=== PATIENT | female | born 1990 | race Caucasian/White ===

== ENCOUNTER 2019-12-21 12:48 | Emergency (ER) | payer BC ==
--- NOTE | 2019-12-21 13:53 | RAD REPORT ---
EXAM DESCRIPTION: CT - Head Brain Wo Cont - 12/21/2019 1:43 pm CLINICAL HISTORY: Dizziness COMPARISON: None. TECHNIQUE: Computed axial tomography of the head was obtained. IV contrast was not requested. All CT scans are performed using dose optimization technique as appropriate and may include automated exposure control or mA/KV adjustment according to patient size. FINDINGS: An intracranial bleed is not seen . The ventricles are normal in caliber. No extra-axial fluid collection is noted. Fluid within the sinuses/ mastoids is not seen. IMPRESSION: No acute intracranial abnormality is seen. If patient's symptoms persist MRI of the bra in would be recommended.
--- NOTE | 2019-12-21 14:44 | ER ---
Nurse's Notes 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 Transition of care: patient was not received from another setting of care. Onset of symptoms was November 28, 2019. Risk Assessment: Do you want to hurt yourself or someone else? Patient reports no desire to harm self or others. Care prior to arrival: None. 13:04 Method Of Arrival: Ambulatory hb 13:04 Acuity: SANJANA 3 hb 13:42 Initial Sepsis Screen: Does the patient meet any 2 criteria? No. Patient's initial jl7 sepsis screen is negative. Does the patient have a suspected source of infection? No. Patient's initial sepsis screen is negative. Historical: - Allergies: 13:06 Erythromycin; hb - PMHx: 13:06 Mckay's Palsy; hb - PSHx: 13:06 Foot - Left; Tonsillectomy; hb - Immunization history:: Adult Immunizations up to date. - Coronavirus screen:: The patient has NOT traveled to [place] in the past 14 days. The patient has NOT had contact with known/suspected case of Coronavirus? Proceed with normal triage procedures. - Social history:: Patient uses Patient/guardian denies using alcohol, street drugs, The patient lives with family, Smoking status: Patient reports the use of cigarette tobacco products, smokes one-half pack cigarettes per day. - Family history:: not pertinent. - Ebola Screening: : No symptoms or risks identified at this time. Screenin:00 Abuse screen: Denies threats or abuse. Denies injuries from another. Nutritional jl7 screening: No deficits noted. Tuberculosis screening: No symptoms or risk factors identified. Fall Risk None identified. Assessment: 13:45 General: Appears in no apparent distress. uncomfortable, Behavior is calm, cooperative, jl7 appropriate for age. Pain: Complains of pain in DILL Pain currently is 4 out of 10 on a pain scale. Neuro: Level of Consciousness is awake, alert, obeys commands, Oriented to person, place, time, situation, Moves all extremities. Full function Gait is steady, Speech is normal. Cardiovascular: Patient's skin is warm and dry. Respiratory: Airway is patent Respiratory effort is even, unlabored, Respiratory pattern is regular, symmetrical. Derm: Skin is pink, warm \T\ dry. Vital Signs: 13:06 BP 131 / 92; Pulse 82; Resp 16; Temp 97.8; Pulse Ox 98% on R/A; Weight 95.25 kg; Height hb 5 ft. 4 in. (162.56 cm); Pain 4/10; 14:30 BP 130 / 91; Pulse 85; Resp 17 S; Pulse Ox 100% on R/A; jl7 13:06 Body Mass Index 36.05 (95.25 kg, 162.56 cm) hb ED Course: 12:52 Patient arrived in ED. mr 13:05 Triage completed. hb 13:06 Arm band placed on. 13:11 Anthony Nunez MD is Attending Physician. ma2 13:28 Nehemiah Neves RN is Primary Nurse. jl7 14:00 Patient has correct armband on for positive identification. Placed in gown. Bed in low jl7 position. Call light in reach. Side rails up X 1. 14:42 Luis M Hobson MD is Referral Physician. ma2 14:49 No provider procedures requiring assistance completed. Patient did not have IV access jl7 during this emergency room visit. Administered Medications: No medications were administered Outcome: 14:42 Discharge ordered by . ma2 14:49 Discharged to home ambulatory. jl7 14:49 Condition: stable 14:49 Discharge instructions given to patient, family, Instructed on discharge instructions, follow up and referral plans. medication usage, Demonstrated understanding of instructions, follow-up care, medications, Prescriptions given X 1. 14:49 Patient left the ED. jl7 Signatures: Sandra Jj mr De LeonSusanna, RN BETZY Nehemiah Neves RN RN [facility] Anthony Nunez MD MD laMeg
--- NOTE | 2019-12-21 14:44 | EDPHYS ---
Physician Documentation [facility] Name: Bouchra Dawkins Age: 29 yrs Sex: Female : 1990 Arrival Date: 12/21/2019 Time: 12:52 Bed 20 Private MD: ED Physician Anthony Nunez HPI: 12/21 14:26 This 29 yrs old Female presents to ER via Ambulatory with complaints of Left ma2 side numbness. 14:26 The patient presents with feeling off balance. Onset: The symptoms/episode ma2 began/occurred suddenly, 1 week(s) ago. Associated signs and symptoms: Pertinent negatives: chest pain, diaphoresis, focal weakness, head injury. Severity of symptoms: At their worst the symptoms were mild in the emergency department the symptoms are unchanged. has positional vertigo, feels off balance only when she turn head to left, has no symptoms at this time and does not want rx for vertigo . Historical: - Allergies: 13:06 Erythromycin; hb - PMHx: 13:06 Mckay's Palsy; hb - PSHx: 13:06 Foot - Left; Tonsillectomy; hb - Immunization history:: Adult Immunizations up to date. - Coronavirus screen:: The patient has NOT traveled to [place] in the past 14 days. The patient has NOT had contact with known/suspected case of Coronavirus? Proceed with normal triage procedures. - Social history:: Patient uses Patient/guardian denies using alcohol, street drugs, The patient lives with family, Smoking status: Patient reports the use of cigarette tobacco products, smokes one-half pack cigarettes per day. - Family history:: not pertinent. - Ebola Screening: : No symptoms or risks identified at this time. ROS: 14:26 Constitutional: Negative for fever, chills, and weight loss. ma2 14:26 All other systems are negative. Exam: 14:26 Constitutional: This is a well developed, well nourished patient who is awake, alert, ma2 and in no acute distress. Head/Face: Normocephalic, atraumatic. Eyes: Pupils equal round and reactive to light, extra-ocular motions intact. Lids and lashes normal. Conjunctiva and sclera are non-icteric and not injected. Cornea within normal limits. Periorbital areas with no swelling, redness, or edema. ENT: Nares patent. No nasal discharge, no septal abnormalities noted. Tympanic membranes are normal and external auditory canals are clear. Oropharynx with no redness, swelling, or masses, exudates, or evidence of obstruction, uvula midline. Mucous membranes moist. Neck: Trachea midline, no thyromegaly or masses palpated, and no cervical lymphadenopathy. Supple, full range of motion without nuchal rigidity, or vertebral point tenderness. No Meningismus. Chest/axilla: Normal chest wall appearance and motion. Nontender with no deformity. No lesions are appreciated. Cardiovascular: Regular rate and rhythm with a normal S1 and S2. No gallops, murmurs, or rubs. Normal PMI, no JVD. No pulse deficits. Respiratory: Lungs have equal breath sounds bilaterally, clear to auscultation and percussion. No rales, rhonchi or wheezes noted. No increased work of breathing, no retractions or nasal flaring. Abdomen/GI: Soft, non-tender, with normal bowel sounds. No distension or tympany. No guarding or rebound. No evidence of tenderness throughout. MS/ Extremity: Pulses equal, no cyanosis. Neurovascular intact. Full, normal range of motion. Neuro: Awake and alert, GCS 15, oriented to person, place, time, and situation. Cranial nerves II-XII grossly intact. Motor strength 5/5 in all extremities. Sensory grossly intact. Cerebellar exam normal. Normal gait. Psych: Awake, alert, with orientation to person, place and time. Behavior, mood, and affect are within normal limits. Vital Signs: 13:06 BP 131 / 92; Pulse 82; Resp 16; Temp 97.8; Pulse Ox 98% on R/A; Weight 95.25 kg; Height hb 5 ft. 4 in. (162.56 cm); Pain 4/10; 14:30 BP 130 / 91; Pulse 85; Resp 17 S; Pulse Ox 100% on R/A; jl7 13:06 Body Mass Index 36.05 (95.25 kg, 162.56 cm) hb MDM: 13:11 Patient medically screened. ma2 14:26 Differential diagnosis: hypovolemia, idiopathic dizziness, near-syncope, vertigo. Data ma2 reviewed: vital signs, nurses notes. Counseling: I had a detailed discussion with the patient and/or guardian regarding: the historical points, exam findings, and any diagnostic results supporting the discharge/admit diagnosis, the presence of at least one elevated blood pressure reading (>120/80) during this emergency department visit, the need for outpatient follow up. 12/21 13:27 Order name: CT Head Brain wo Cont ma2 Administered Medications: No medications were administered Disposition: 12/21/19 14:42 Discharged to Home. Impression: Vertiginous syndromes in diseases classified elsewhere, left ear. - Condition is Stable. - Discharge Instructions: Vertigo, [id number]. - Prescriptions for Meclizine 25 mg Oral Tablet - take 1 tablet by ORAL route every 8 hours As needed; 30 tablet. - Medication Reconciliation Form, Thank You Letter, Antibiotic Education, Prescription Opioid Use form. - Follow up: Luis M Hobson; When: Tomorrow; Reason: If symptoms return, Continuance of care. Signatures: Dispatcher [employer] EDMS Susanna De Leon RN RN Nehemiah Neves RN RN jl7 Anthony Nunez MD MD ma2 Corrections: (The following items were deleted from the chart) 14:44 14:42 12/21/2019 14:42 Discharged to Home. Impression: Vertigo of central origin, left ma2 ear. Condition is Stable. Prescriptions for Meclizine 25 mg Oral Tablet - take 1 tablet by ORAL route every 8 hours As needed; 30 tablet. and Forms are Medication Reconciliation Form, Thank You Letter, Antibiotic Education, Prescription Opioid Use. Follow up: Luis M Hobson; When: Tomorrow; Reason: If symptoms return, Continuance of care. oh2 14:49 14:44 12/21/2019 14:42 Discharged to Home. Impression: Vertiginous syndromes in jl7 diseases classified elsewhere, left ear. Condition is Stable. Prescriptions for Meclizine 25 mg Oral Tablet - take 1 tablet by ORAL route every 8 hours As needed; 30 tablet. and Forms are Medication Reconciliation Form, Thank You Letter, Antibiotic Education, Prescription Opioid Use. Follow up: Luis M Hobson; When: Tomorrow; Reason: If symptoms return, Continuance of care. ma2
[2019-12-21 14:57] VITALS: TEMP 97.8
[2019-12-21 14:58] VITALS: BP 130/91; O2SAT 100
== END 2019-12-21 14:49 | disposition home or self-care (01) ==
LOC: ER 12:48
DX: H82.2 Vertiginous syndromes in diseases classified elsewhere, left ear (principal); F17.210 Nicotine dependence, cigarettes, uncomplicated; G51.0 Bell's palsy; Z88.3 Allergy status to other anti-infective agents
CPT/HCPCS: 70450; 99282

== ENCOUNTER 2024-12-29 03:46 | Emergency (ER) | payer BC ==
--- NOTE | 2024-12-29 04:38 | EDPHYS ---
Physician Documentation [facility] Name: Bouchra Dawkins Age: 34 yrs Sex: Female : 1990 Arrival Date: 12/29/2024 Time: 03:46 Bed 8 Private MD: ED Physician Araseli Nix HPI: 12/29 04:34 This 34 yrs old Female presents to ER via Ambulatory with complaints of Chest sp3 Tightness, Anxiety, Neck and Upper Back Pain, Headache. 04:34 34-year-old female with history of Mckay's palsy and anxiety and recent neck strain sp3 presents to the ED with chief complaint palpitations and anxiety with worsening neck tightness. Symptoms are already self resolving. She denies any headache, shortness of breath, low back pain, abdominal pain, vomiting, diarrhea or substernal chest pain. Remainder of ROS negative.. PODIATRIST: 04:18 LMP 12/12/2024, unknown vc1 Historical: - Allergies: 04:14 Erythromycin; vc1 - Home Meds: 04:14 omeprazole 20 mg oral capsule,delayed release (e.c.) [Active]; Klonopin 0.25 mg Oral vc1 [Active]; Rose Oral [Active]; - PMHx: 04:14 Mckay's Palsy; Anxiety; vc1 - PSHx: 04:14 Tonsillectomy; vc1 - Immunization history:: Client reports having NOT received the Covid vaccine. Pneumococcal vaccine is not up to date. - Infectious Disease History:: Denies. - Social history:: Smoking status: Patient reports the use of cigarette tobacco products, 5-7 cigs. ROS: 04:35 Constitutional: Negative for fever, chills, and weight loss, Eyes: Negative for injury, sp3 pain, redness, and discharge, Neck: Negative for injury, pain, and swelling, Cardiovascular: Negative for chest pain, palpitations, and edema, Respiratory: Negative for shortness of breath, cough, wheezing, and pleuritic chest pain, Abdomen/GI: Negative for abdominal pain, nausea, vomiting, diarrhea, and constipation, Back: Negative for injury and pain, MS/Extremity: Negative for injury and deformity, Skin: Negative for injury, rash, and discoloration, Neuro: Negative for headache, weakness, numbness, tingling, and seizure, Allergy/Immunology: Negative for hives, rash, and allergies, Endocrine: Negative for neck swelling, polydipsia, polyuria, polyphagia, and marked weight changes, Hematologic/Lymphatic: Negative for swollen nodes, abnormal bleeding, and unusual bruising, 04:35 All other systems are negative, Exam: 04:36 Constitutional: This is a well developed, well nourished patient who is awake, alert, sp3 and in no acute distress. Head/Face: Normocephalic, atraumatic. Eyes: Pupils equal round and reactive to light, extra-ocular motions intact. Lids and lashes normal. Conjunctiva and sclera are non-icteric and not injected. Cornea within normal limits. Periorbital areas with no swelling, redness, or edema. Neck: Trachea midline, no thyromegaly or masses palpated, and no cervical lymphadenopathy. Supple, full range of motion without nuchal rigidity, or vertebral point tenderness. No Meningismus. Chest/axilla: Normal chest wall appearance and motion. Nontender with no deformity. No lesions are appreciated. Cardiovascular: Regular rate and rhythm with a normal S1 and S2. No gallops, murmurs, or rubs. Normal PMI, no JVD. No pulse deficits. Respiratory: Lungs have equal breath sounds bilaterally, clear to auscultation and percussion. No rales, rhonchi or wheezes noted. No increased work of breathing, no retractions or nasal flaring. Abdomen/GI: Soft, non-tender, with normal bowel sounds. No distension or tympany. No guarding or rebound. No evidence of tenderness throughout. Back: No spinal tenderness. No costovertebral tenderness. Full range of motion. Skin: Warm, dry with normal turgor. Normal color with no rashes, no lesions, and no evidence of cellulitis. MS/ Extremity: Pulses equal, no cyanosis. Neurovascular intact. Full, normal range of motion. Neuro: Awake and alert, GCS 15, oriented to person, place, time, and situation. Cranial nerves II-XII grossly intact. Motor strength 5/5 in all extremities. Sensory grossly intact. Cerebellar exam normal. Normal gait. Psych: Awake, alert, with orientation to person, place and time. Behavior, mood, and affect are within normal limits. 04:36 ECG was reviewed by the Attending Physician. EKG demonstrates normal sinus rhythm at 74 bpm with normal intervals, normal QRS, normal axis, nonspecific diffuse ST/T changes without evidence of acute ischemia. Vital Signs: 04:09 BP 135 / 88; Pulse 88; Resp 14; Temp 98.3; Pulse Ox 100% ; Weight 79.38 kg; Height 5 vc1 ft. 4 in. ; Pain 2/10; 04:44 BP 124 / 93; Pulse 73; Resp 18; Temp 98.3; Pulse Ox 95% ; Pain 0/10; bm8 04:09 Body Mass Index 30.04 (79.38 kg, 162.56 cm) vc1 04:09 Pain Scale: Adult vc1 04:44 Pain Scale: Adult bm8 [place] Coma Score: 04:44 Eye Response: spontaneous(4). Motor Response: obeys commands(6). Verbal Response: bm8 oriented(5). Total: 15. MDM: 03:56 Medical Screening Exam initiated sp3 04:36 Data reviewed: EKG, radiologic studies. ED course: 34-year-old female with anxiety now sp3 with resolved symptoms. Heart rate is normal in the low 70s. EKG and chest x-ray also normal. We will safely discharge home at this time with follow-up to PCP on any medication changes.. 12/29 04:00 Order name: XRAY Chest (1 view) sp3 12/29 04:00 Order name: EKG; Complete Time: 04:00 sp3 12/29 04:00 Order name: EKG - Nurse/Tech; Complete Time: 04:12 sp3 Administered Medications: No medications were administered Disposition Summary: 12/29/24 04:37 Discharge Ordered Notes: Location: Home sp3 Condition: Stable sp3 Diagnosis - Anxiety disorder, unspecified sp3 Followup: sp3 - With: Private Physician - When: Upon discharge from the Emergency Department - Reason: Recheck today's complaints, Continuance of care Discharge Instructions: - Discharge Summary Sheet sp3 - Managing Anxiety, Adult sp3 Forms: - Medication Reconciliation Form sp3 - Antibiotic Education sp3 - Prescription Opioid Use sp3 - Patient Portal Instructions sp3 - Leadership Thank You Letter sp3 Signatures: Dispatcher [employer] EDMS Araseli Nix MD MD sp3 Marla Nance RN RN vc1
--- NOTE | 2024-12-29 04:38 | ER ---
Nurse's Notes [facility] Name: Bouchra Dawkins Age: 34 yrs Sex: Female : 1990 Arrival Date: 12/29/2024 Time: 03:46 Bed 8 Private MD: Diagnosis: Anxiety disorder, unspecified Presentation: 12/29 04:09 Chief complaint: Patient states: went to urgent care Saturday for neck sprain, it is vc1 still bothering me. Tonight I was trying to lay down and I started having chest palpitations and chest tightness. Coronavirus screen: Client denies travel out of the [place] in the last 14 days. At this time, the client does not indicate any symptoms associated with coronavirus-19. Ebola Screen: Patient negative for fever greater than or equal to 101.5 degrees Fahrenheit, and additional compatible Ebola Virus Disease symptoms Patient denies exposure to infectious person. Patient denies travel to an Ebola-affected area in the 21 days before illness onset. No symptoms or risks identified at this time. Initial Sepsis Screen: Does the patient meet any 2 criteria? No. Patient's initial sepsis screen is negative. Does the patient have a suspected source of infection? No. Patient's initial sepsis screen is negative. Risk Assessment: Do you want to hurt yourself or someone else? Patient reports no desire to harm self or others. Onset of symptoms was December 29, 2024. Care prior to arrival: None. Activity prior to arrival: None. 04:09 Method Of Arrival: Ambulatory vc1 04:09 Acuity: SANJANA 4 vc1 Triage Assessment: 04:19 General: Appears in no apparent distress. uncomfortable, well groomed, well developed, vc1 well nourished, Behavior is cooperative, anxious. Pain: Complains of pain in right sternocleidomastoid and right lateral aspect of neck Pain does not radiate. Pain currently is 2 out of 10 on a pain scale. EENT: No deficits noted. No signs and/or symptoms were reported regarding the EENT system. Neuro: Level of Consciousness is awake, alert, obeys commands, Oriented to person, place, time, situation, Appropriate for age. Cardiovascular: Reports palpitations, chest tightness Capillary refill < 3 seconds Patient's skin is warm and dry. Cardiovascular: Heart tones S1 S2 present. Respiratory: Airway is patent Respiratory effort is even, unlabored, Respiratory pattern is regular, symmetrical, Breath sounds are clear bilaterally. GI: No deficits noted. No signs and/or symptoms were reported involving the gastrointestinal system. : No deficits noted. No signs and/or symptoms were reported regarding the genitourinary system. Derm: Skin is intact, is healthy with good turgor, Skin is dry, Skin is normal, Skin temperature is warm. Musculoskeletal: Circulation, motion, and sensation intact. Range of motion: intact in all extremities, Reports pain in right sternocleidomastoid. [employer] LINESMAN: 04:18 LMP 12/12/2024, unknown vc1 Historical: - Allergies: 04:14 Erythromycin; vc1 - Home Meds: 04:14 omeprazole 20 mg oral capsule,delayed release (e.c.) [Active]; Klonopin 0.25 mg Oral vc1 [Active]; Rose Oral [Active]; - PMHx: 04:14 Mckay's Palsy; Anxiety; vc1 - PSHx: 04:14 Tonsillectomy; vc1 - Immunization history:: Client reports having NOT received the Covid vaccine. Pneumococcal vaccine is not up to date. - Infectious Disease History:: Denies. - Social history:: Smoking status: Patient reports the use of cigarette tobacco products, 5-7 cigs. Screenin:[address] [facility] ED Fall Risk Assessment (Adult) History of falling in the last 3 months, vc1 including since admission No falls in past 3 months (0 pts) Confusion or Disorientation No (0 pts) Intoxicated or Sedated No (0 pts) Impaired Gait No (0 pts) Mobility Assist Device Used No (0 pt) Altered Elimination No (0 pt) Score/Fall Risk Level 0 - 2 = Low Risk Oriented to surroundings, Maintained a safe environment, Educated pt \T\ family on fall prevention, incl call for assistance when getting out of bed. Abuse screen: Denies threats or abuse. Nutritional screening: No deficits noted. Tuberculosis screening: No symptoms or risk factors identified. Assessment: 04:44 Reassessment: Patient appears in no apparent distress at this time. Patient and/or bm8 family updated on plan of care and expected duration. Pain level reassessed. Patient is alert, oriented x 3, equal unlabored respirations, skin warm/dry/pink. General: Appears in no apparent distress. comfortable, Behavior is calm, cooperative, appropriate for age. Pain: Denies pain. Pain currently is 0 out of 10 on a pain scale. Neuro: No deficits noted. Level of Consciousness is awake, alert, obeys commands, Oriented to person, place, time, situation, Appropriate for age. Cardiovascular: Denies chest pain, Heart tones S1 S2 present. Respiratory: Airway is patent Respiratory effort is even, unlabored, Respiratory pattern is regular, symmetrical. Vital Signs: 04:09 BP 135 / 88; Pulse 88; Resp 14; Temp 98.3; Pulse Ox 100% ; Weight 79.38 kg; Height 5 vc1 ft. 4 in. ; Pain 2/10; 04:44 BP 124 / 93; Pulse 73; Resp 18; Temp 98.3; Pulse Ox 95% ; Pain 0/10; bm8 04:09 Body Mass Index 30.04 (79.38 kg, 162.56 cm) vc1 04:09 Pain Scale: Adult vc1 04:44 Pain Scale: Adult bm8 [place] Coma Score: 04:44 Eye Response: spontaneous(4). Motor Response: obeys commands(6). Verbal Response: bm8 oriented(5). Total: 15. ED Course: 03:50 Patient arrived in ED. jj6 03:55 Damon Tinsley, RN is Primary Nurse. bm8 03:56 Araseli Nix MD is Attending Physician. sp3 04:12 No provider procedures requiring assistance completed. EKG done, by ED staff, reviewed bm8 by Araseli Nix MD. Patient maintains SpO2 saturation greater than 95% on room air. 04:14 Triage completed. vc1 04:18 Arm band placed on right wrist. vc1 04:19 Patient has correct armband on for positive identification. Bed in low position. vc1 ip litigation associate on. Pulse ox on. NIBP on. 04:26 XRAY Chest (1 view) In Process Unspecified. EDMS 04:44 Patient did not have IV access during this emergency room visit. bm8 04:44 Provided Education on: post er care. bm8 Administered Medications: No medications were administered Medication: 04:19 VIS not applicable for this client. vc1 Outcome: 04:37 Discharge ordered by . sp3 04:44 Discharged to home ambulatory, bm8 04:44 Condition: stable 04:44 Discharge instructions given to patient, Instructed on discharge instructions, follow up and referral plans. Demonstrated understanding of instructions, follow-up care, 04:46 Patient left the ED. bm8 Signatures: Dispatcher [employer] Araseli Kathleen MD MD sp3 Bethany Silva Vanessa RN RN vc1 Damon Tinsley RN RN bm8
[2024-12-29 04:54] VITALS: TEMP 98.3
[2024-12-29 04:55] VITALS: BP 124/93; O2SAT 95
--- NOTE | 2024-12-29 06:09 | RAD REPORT ---
PROCEDURE: R CHEST 1 VIEW HISTORY: HEST PAIN COMPARISON: None FINDINGS: The heart appears unremarkable. The lungs are clear there is no alveolar consolidation, effusion or p neumothorax. There are no acute bony or soft tissue abnormalities. Dystrophic calcification projects over the right AC joint. IMPRESSION: No acute cardiopulmonary process. Electronically signed by: Umer Tsang MD 12/29/2024 05:50 AM [facility] Due to temporary technical issues with the [employer] reporting system, reports are being martha d by the in-house radiologist without review as a courtesy to ensure prompt reporting the interpreting radiologist is fully responsible for the content of the report. Transcribed Date/Time: 12/29/2024 6:09 AM
--- NOTE | 2024-12-29 12:10 | EKG ---
Test Date: 2024-12-29 Test Time: 04:04:01 Gristmill Operator: MIKE MEASUREMENT RESULTS: Intervals: Rate: 74 SD: 138 QRSD: 76 QT: 370 QTc: 410 Alloway: P: 58 SD: 138 QRS: 36 T: 44 INTERPRETIVE STATEMENTS: Normal sinus rhythm with sinus arrhythmia Normal ECG No previous ECG available for comparison Electronically Signed On 12-29-24 12:10:15 REEL WINDER by Arturo Marley
== END 2024-12-29 04:46 | disposition home or self-care (01) ==
LOC: ER 03:46
DX: F41.9 Anxiety disorder, unspecified (principal); R51.9 Headache, unspecified; Z72.0 Tobacco use
CPT/HCPCS: 71045; 93005

== ENCOUNTER 2025-03-07 17:23 | Emergency (ER) | payer BC ==
[2025-03-07 18:55] LABS: Absolute Eosinophils 0.2 K/uL (0-0.5); Absolute Lymphocytes (CBC) 3.2 K/uL (0.7-4.9); Absolute Monocytes 0.4 K/uL (0.1-1.3); Absolute Neutrophil 3.3 K/uL (1.8-8.0); Basophils % 0.6 % (0-1.3); Eosinophils % 2.2 % (0-4.4); Hematocrit 39.7 % (36.0-45.0); Hemoglobin 13.5 g/dL (12.0-15.0); Lymphocytes % 44.6 % (15.3-44.8); MCH 30.3 pg (27.0-35.0); MCHC 34.2 g/dL (32.0-36.0); MCV 88.8 fL (80-100); MPV 8.3 fL (7.6-11.3); Monocytes % 5.6 % (3.3-12.3); Nucleated Red Blood Cells % 0.1 % (0-0); Platelets 241 thou/uL (152-406); RBC Red Blood Cell Count 4.47 M/uL (3.86-4.86); Red Cell Distribution Width 13.6 % (12.1-15.2)
[2025-03-07 18:56] LABS: Specific Gravity 1.007 (1.005-1.030)
[2025-03-07 18:57] LABS: Specific Gravity 1.007 (1.005-1.030); Sqamous Epithelial <5 /HPF (None Seen); Urine Bacteria None Seen /HPF (<20); Urine Bilirubin NEGATIVE (Negative); Urine Blood 1+ (Negative); Urine Clarity Clear (Clear); Urine Color Colorless (Yellow); Urine Culture Reflex Order NOT NEEDED; Urine Glucose NEGATIVE (Negative); Urine Ketones NEGATIVE (Negative); Urine Microscopic Reflex YN ORDER UMIC; Urine Mucus Slight /HPF (None Seen); Urine Nitrite NEGATIVE (Negative); Urine Protein NEGATIVE (Negative); Urine RBC <5 /HPF (None Seen); Urine Urobilinogen Normal (Normal); Urine WBC <5 /HPF (<5); Urine pH 5.5 (5.0-7.0)
[2025-03-07 19:11] LABS: ALT/SGPT 15 U/L (13-56); Albumin 3.4 g/dL (3.4-5.0); Albumin/Globulin Ratio 0.9 (1.1-1.8); Alkaline Phosphatase 61 U/L (45-117); Anion Gap 7.6 mEq/L (5.0-15.0); BUN Blood Urea Nitrogen 9 mg/dL (7-18); Bicarbonate 27 mEq/L (21-32); Bilirubin Total 0.4 mg/dL (0.2-1.0); Globulin 3.7 g/dL (2.3-3.5); Glomerular Filtration Rate 100 ml/min (=/>90); Glucose Level 90 mg/dL (74-106); Lipase 36 U/L (13-75); Potassium 3.6 mEq/L (3.5-5.1); Protein, Total 7.1 g/dL (6.4-8.2); Sodium Level 137 mEq/L (136-145)
[2025-03-07 19:12] LABS: AST/SGOT < 10 U/L (15-37)
[2025-03-07] MEDS ORDERED: NA CHLORIDE 0.9% 1,000 ML ONE (19:15)
[2025-03-07] MEDS ORDERED: FAMOTIDINE 20 MG/2 ML VIAL IV ONE (19:15)
[2025-03-07] MEDS ORDERED: ONDANSETRON 4 MG/2 ML VIAL ONE (19:15)
--- NOTE | 2025-03-07 19:50 | RAD REPORT ---
EXAMINATION: CT ABDOMEN AND PELVIS WITH CONTRAST CLINICAL INDICATION: left upper abdomen pain TECHNIQUE: CT abdomen and pelvis was performed, after the administration of IV contrast, as per [facility] protocol. Axial, sagittal and coronal reconstructions were obtained. One or more of the following dose reduction techniques were used: Automated exposure control, adjustment of the mA and k V according to patient size, and iterative reconstruction. Unless otherwise specified, incidental findings do not require dedicated imaging follow-up. COMPARISON: No prior exam. FINDINGS: LOWER CHEST: The visualized lung bases are clear. LIVER: Normal in size and contour. No focal lesion. Grossly unremarkable gallbladder. SPLEEN: Normal size. No focal lesion. PANCREAS: No mass, ductal dilation, or jumana-pancreatic fluid. ADRENALS: Normal; no mass. KIDNEYS: Normal size and contour. No hydronephrosis. Benign left renal cyst. GASTROINTESTINAL TRACT: No evidence of free air, significant intra-abdominal free fluid, bowel obstru ction or abscess. Moderate stool is retained throughout the colon. APPENDIX: Normal appendix. LYMPH NODES: No lymphadenopathy. MUSCULOSKELETAL: No acute or suspicious osseous abnormality. IMPRESSION: No acute or concerning abnormalities seen in the abdomen or pelvis.
[2025-03-07] MEDS ORDERED: MAGNES/ALUMIN/SIMET 30ML UCUP ONE (20:56)
[2025-03-07] MEDS ORDERED: LIDOCAINE VISCOUS 2% 10ML ORAL SOLN ONE (20:57)
--- NOTE | 2025-03-07 21:26 | EDPHYS ---
Physician Documentation [facility] Name: Bouchra Dawkins Age: 35 yrs Sex: Female : 1990 Arrival Date: 03/07/2025 Time: 17:23 Bed 17 Private MD: ED Physician Felton Caro HPI: 03/07 18:35 This 35 yrs old Female presents to ER via Ambulatory with complaints of Abdominal Pain. cp 18:35 The patient presents with abdominal pain in the left upper quadrant. cp 18:35 Onset: The symptoms/episode began/occurred this past Saturday. The symptoms radiate to cp 18:35 Associated signs and symptoms: Pertinent positives: nausea, Pertinent negatives: active cp vomiting. The symptoms are described as achy, burning, waxing/waning. Severity of pain: in the emergency department the pain is unchanged despite home interventions. Patient reports constipation when pain started, took laxative w/o improvement of pain. Historical: - Allergies: 17:36 Erythromycin; aa5 - Home Meds: 17:38 omeprazole 20 mg Oral capsule [Active]; Klonopin 0.25 mg Oral [Active]; Rose Oral aa5 [Active]; - PMHx: 17:36 Anxiety; Mckay's Palsy; GERD (Unknown); aa5 - PSHx: 17:36 Tonsillectomy; aa5 - Immunization history:: Adult Immunizations unknown. - Infectious Disease History:: Denies. - Social history:: Smoking status: Patient reports the use of cigarette tobacco products. ROS: 18:40 Constitutional: Negative for body aches, chills, fever, poor PO intake, cp 18:40 Eyes: Negative for injury, pain, redness, and discharge, cp 18:40 ENT: Negative for drainage from ear(s), ear pain, difficulty swallowing, difficulty handling secretions, 18:40 Cardiovascular: Negative for chest pain, edema, palpitations, 18:40 Respiratory: Negative for cough, shortness of breath, wheezing, 18:40 Abdomen/GI: Positive for abdominal pain, nausea, Negative for vomiting, diarrhea, constipation, anorexia, 18:40 Back: Positive for radiated pain, 18:40 Neuro: Negative for altered mental status, dizziness, headache, weakness, 18:40 All other systems are negative, Exam: 18:45 Constitutional: The patient appears in no acute distress, alert, awake, cp non-diaphoretic, non-toxic, well developed, well nourished, 18:45 Head/Face: Normocephalic, atraumatic. cp 18:45 Eyes: Periorbital structures: appear normal, Conjunctiva: normal, no exudate, no injection, Sclera: no appreciated abnormality, Lids and lashes: appear normal, bilaterally, 18:45 ENT: External ear(s): are unremarkable, Nose: is normal, Mouth: Lips: moist, Oral mucosa: moist, Posterior pharynx: Airway: no evidence of obstruction, patent, 18:45 Chest/axilla: Inspection: normal, Palpation: crepitus, is not appreciated, tenderness, is not appreciated, 18:45 Cardiovascular: Rate: bradycardic, Rhythm: regular, Edema: is not appreciated, JVD: is not appreciated, 18:45 Respiratory: the patient does not display signs of respiratory distress, Respirations: normal, no use of accessory muscles, no retractions, labored breathing, is not present, Breath sounds: are clear throughout, no decreased breath sounds, no stridor, no wheezing, 18:45 Abdomen/GI: Inspection: abdomen appears normal, Bowel sounds: active, all quadrants, Palpation: soft, in all quadrants, moderate abdominal tenderness, in the left upper quadrant, rebound tenderness, is not appreciated, involuntary guarding, is not appreciated, 18:45 Back: CVA tenderness, is absent, 18:45 Skin: no rash present. Vital Signs: 17:37 BP 115 / 74; Pulse 54; Resp 16 S; Temp 98.4(O); Pulse Ox 100% on R/A; Weight 77.11 kg aa5 (R); Height 5 ft. 4 in. (R); 21:25 BP 111 / 81; Pulse 56; Resp 16; Pulse Ox 97% on R/A; jb4 17:37 Body Mass Index 29.18 (77.11 kg, 162.56 cm) aa5 Hudson Coma Score: 18:55 Eye Response: spontaneous(4). Motor Response: obeys commands(6). Verbal Response: dd2 oriented(5). Total: 15. MDM: 19:00 Differential diagnosis: cholecystitis, Cholelithiasis, non-specific abd pain, cp pancreatitis, Peptic Ulcer Disease, Perf. Duodenal Ulcer, Perf. Gastric Ulcer, Pyelonephritis, Ureterolithiasis, urinary tract infection. 21:25 Medical Screening Exam initiated 21:25 Data reviewed: vital signs, nurses notes, lab test result(s), radiologic studies, CT cp scan, and as a result, I will discharge patient. 21:25 I considered the following discharge prescriptions or medication management in the emergency department Medications were administered in the Emergency Department. See MAR. Counseling: I had a detailed discussion with the patient and/or guardian regarding the historical points, exam findings, and any diagnostic results supporting the discharge/admit diagnosis, lab results, radiology results, to return to the emergency department if symptoms worsen or persist or if there are any questions or concerns that arise at home. Response to treatment: the patient's symptoms have mildly improved after treatment, and as a result, I will discharge patient. Special discussion: Based on the patient's Hx, exam, and Dx evaluation, there is no indication for emergent surgery or inpatient Tx. It is understood by the patient/guardian that if the Sx's persist or worsen they need to return immediately for re-evaluation. 03/07 18:34 Order name: CBC with Diff; Complete Time: 19:16 03/07 18:34 Order name: CMP; Complete Time: 19:16 03/07 20:10 Interpretation: Reviewed. 03/07 18:34 Order name: Lipase; Complete Time: 19:16 03/07 18:34 Order name: Test, Urine; Complete Time: 19:16 03/07 18:34 Order name: UA Rfx Peewee Cult if indicated; Complete Time: 19:16 03/07 19:17 Order name: CT Abd/Pelvis - IV Contrast Only; Complete Time: 20:09 03/07 18:34 Order name: IV Saline Lock; Complete Time: 18:55 03/07 18:34 Order name: Labs collected and sent; Complete Time: 18:55 Administered Medications: 19:27 Drug: Famotidine IVP 20 mg IVP once; dilute with 10 mL 0.9% NaCl; give over 2 minutes jb4 Route: IVP; Site: right antecubital; 21:49 Follow up: Response: No adverse reaction; Marked relief of symptoms jb4 19:27 Not Given (Patient Refused): ondansetron 4 mg IVP once; over 2 minutes jb4 19:27 Drug: NS 0.9% IV 1000 ml IV at 1 bolus Per protocol; to be given as a bolus over 60 jb4 minutes Route: IV; Rate: 1 bolus; Site: right antecubital; 20:30 Follow up: Response: No adverse reaction; Marked relief of symptoms; IV Status: jb4 Completed infusion; IV Intake: 1000ml 20:58 Drug: GI Cocktail without - (Maalox PO 30 ml, Lidocaine Mucous Membrane 2 % 15 jb4 ml) PO once Route: PO; 21:48 Follow up: Response: No adverse reaction; Marked relief of symptoms jb4 Disposition Summary: 03/07/25 21:25 Discharge Ordered Notes: Location: Home cp Problem: new cp Symptoms: have improved cp Condition: Stable cp Diagnosis - Upper abdominal pain, unspecified cp Followup: cp - With: Private Physician - When: 2 - 3 days - Reason: Worsening of condition Discharge Instructions: - Discharge Summary Sheet cp - Abdominal Pain, Adult cp - Food Choices for Gastroesophageal Reflux Disease, Adult cp - Gastroesophageal Reflux Disease, Adult cp Forms: - Medication Reconciliation Form cp - Antibiotic Education cp - Prescription Opioid Use cp - Patient Portal Instructions cp - Leadership Thank You Letter cp Prescriptions: - Carafate 1 gram Oral tablet - take 1 tablet ORAL route 4 times per day take on an empty stomach, beginning on cp waking and last dose at bedtime. dissolve tablet in 6 oz warm water prior to ingestion; 100 tablet; Refills: 0, Product Selection Permitted Addendum: 03/09/2025 09:08 Co-signature as Attending Physician, Felton Caro MD I reviewed the patient's care r n provided by the Advanced Practice Provider and agree with the diagnosis and treatment plan. Signatures: Dispatcher [employer] EDFelton Simmons MD MD rn Calderon, Audri RN RN aa5 Elkin Vila PA PA cp Bryson, James RN RN jb4
--- NOTE | 2025-03-07 21:26 | ER ---
Nurse's Notes [facility] Name: Bouchra Dawkins Age: 35 yrs Sex: Female : 1990 Arrival Date: 03/07/2025 Time: 17:23 Bed 17 Private MD: Diagnosis: Upper abdominal pain, unspecified Presentation: 03/07 17:37 Chief complaint: Patient states: LUQ pain that began Saturday, denies nausea/vomiting. aa5 Coronavirus screen: At this time, the client does not indicate any symptoms associated with coronavirus-19. Ebola Screen: Patient denies travel to an Ebola-affected area in the 21 days before illness onset. Initial Sepsis Screen: Does the patient meet any 2 criteria? No. Patient's initial sepsis screen is negative. Does the patient have a suspected source of infection? No. Patient's initial sepsis screen is negative. Risk Assessment: Do you want to hurt yourself or someone else? Patient reports no desire to harm self or others. Onset of symptoms was February 2025. 17:37 Acuity: SANJANA 3 aa5 17:37 Method Of Arrival: Ambulatory aa5 Historical: - Allergies: 17:36 Erythromycin; aa5 - Home Meds: 17:38 omeprazole 20 mg Oral capsule [Active]; Klonopin 0.25 mg Oral [Active]; Rose Oral aa5 [Active]; - PMHx: 17:36 Anxiety; Mckay's Palsy; GERD (Unknown); aa5 - PSHx: 17:36 Tonsillectomy; aa5 - Immunization history:: Adult Immunizations unknown. - Infectious Disease History:: Denies. - Social history:: Smoking status: Patient reports the use of cigarette tobacco products. Screenin:55 [facility] ED Fall Risk Assessment (Adult) History of falling in the last 3 months, dd2 including since admission No falls in past 3 months (0 pts) Confusion or Disorientation No (0 pts) Intoxicated or Sedated No (0 pts) Impaired Gait No (0 pts) Mobility Assist Device Used No (0 pt) Altered Elimination No (0 pt) Score/Fall Risk Level 0 - 2 = Low Risk Oriented to surroundings, Maintained a safe environment, Educated pt \T\ family on fall prevention, incl call for assistance when getting out of bed, Assessed \T\ reinforced patient's understanding of fall precautions, Hourly rounding (assess needs \T\ fall precautionary measures) done. Abuse screen: Denies threats or abuse. Denies injuries from another. Nutritional screening: No deficits noted. Tuberculosis screening: No symptoms or risk factors identified. Assessment: 18:55 General: Appears in no apparent distress. uncomfortable, Behavior is calm, cooperative, dd2 appropriate for age. Pain: Complains of pain in left upper quadrant Pain does not radiate. Pain currently is 6 out of 10 on a pain scale. Quality of pain is described as burning, crampy. Neuro: No deficits noted. Cardiovascular: No deficits noted. Patient's skin is warm and dry. Respiratory: No deficits noted. Airway is patent Respiratory effort is even, unlabored, Respiratory pattern is regular, symmetrical. GI: Bowel sounds present X 4 quads. Abd is soft X 4 quads Abdomen is tender to palpation in left upper quadrant Reports upper abdominal pain, cramping. GI: Patient currently denies nausea, vomiting. : No deficits noted. No signs and/or symptoms were reported regarding the genitourinary system. EENT: No deficits noted. No signs and/or symptoms were reported regarding the EENT system. Derm: No deficits noted. No signs and/or symptoms reported regarding the dermatologic system. Musculoskeletal: No deficits noted. Circulation, motion, and sensation intact. Range of motion: intact in all extremities. 21:22 Reassessment: Patient appears in no apparent distress at this time. Patient and/or jb4 family updated on plan of care and expected duration. Pain level reassessed. Patient is alert, oriented x 3, equal unlabored respirations, skin warm/dry/pink. 21:48 Reassessment: Patient appears in no apparent distress at this time. Patient and/or jb4 family updated on plan of care and expected duration. Pain level reassessed. Patient is alert, oriented x 3, equal unlabored respirations, skin warm/dry/pink. Vital Signs: 17:37 BP 115 / 74; Pulse 54; Resp 16 S; Temp 98.4(O); Pulse Ox 100% on R/A; Weight 77.11 kg aa5 (R); Height 5 ft. 4 in. (R); 21:25 BP 111 / 81; Pulse 56; Resp 16; Pulse Ox 97% on R/A; jb4 17:37 Body Mass Index 29.18 (77.11 kg, 162.56 cm) aa5 Sanya Coma Score: 18:55 Eye Response: spontaneous(4). Motor Response: obeys commands(6). Verbal Response: dd2 oriented(5). Total: 15. ED Course: 17:25 Patient arrived in ED. mr 17:35 Arm band placed on. aa5 17:36 Elkin Vila PA is PHCP. cp 17:36 Felton Caro MD is Attending Physician. cp 17:38 Triage completed. aa5 18:24 VILLA ALVAREZ, BETZY is Primary Nurse. dd2 18:55 Patient has correct armband on for positive identification. Placed in gown. Bed in low dd2 position. Call light in reach. Side rails up X 1. Client placed on continuous cardiac and pulse oximetry monitoring. NIBP monitoring applied. Door closed. Noise minimized. Warm blanket given. Pillow given. Verbal reassurance given. 18:55 CBC with Diff Sent. dd2 18:55 CMP Sent. dd2 18:55 Lipase Sent. dd2 18:55 Test, Urine Sent. dd2 18:55 UA Rfx Peewee Cult if indicated Sent. dd2 18:55 No provider procedures requiring assistance completed. Initial lab(s) drawn, by mn, dd2 sent to lab. Urine collected: clean catch specimen, cloudy. Inserted saline lock: 20 gauge in right antecubital area, using aseptic technique. Blood collected. Flushed with 10 mL NS. Patient maintains SpO2 saturation greater than 95% on room air. 19:46 CT Abd/Pelvis - IV Contrast Only In Process Unspecified. EDMS 21:22 Provided Education on: plan of care. jb4 21:48 IV discontinued, intact, bleeding controlled, No redness/swelling at site. Pressure jb4 dressing applied. Administered Medications: 19:27 Drug: Famotidine IVP 20 mg IVP once; dilute with 10 mL 0.9% NaCl; give over 2 minutes jb4 Route: IVP; Site: right antecubital; 21:49 Follow up: Response: No adverse reaction; Marked relief of symptoms jb4 19:27 Not Given (Patient Refused): ondansetron 4 mg IVP once; over 2 minutes jb4 19:27 Drug: NS 0.9% IV 1000 ml IV at 1 bolus Per protocol; to be given as a bolus over 60 jb4 minutes Route: IV; Rate: 1 bolus; Site: right antecubital; 20:30 Follow up: Response: No adverse reaction; Marked relief of symptoms; IV Status: jb4 Completed infusion; IV Intake: 1000ml 20:58 Drug: GI Cocktail without - (Maalox PO 30 ml, Lidocaine Mucous Membrane 2 % 15 jb4 ml) PO once Route: PO; 21:48 Follow up: Response: No adverse reaction; Marked relief of symptoms jb4 Medication: 18:55 VIS not applicable for this client. dd2 Intake: 20:30 IV: 1000ml; Total: 1000ml. jb4 Outcome: 21:25 Discharge ordered by . cp 21:48 Discharged to home ambulatory, with family, jb4 21:48 Condition: stable 21:48 Discharge instructions given to patient, Instructed on discharge instructions, follow up and referral plans. medication usage, Demonstrated understanding of instructions, follow-up care, medications, Prescriptions given X 1, 21:50 Patient left the ED. jb4 Signatures: Dispatcher [employer] EDPR Sandra Jj, Reg Reg mr Carrie Goncalves, RN RN aa5 Elkin Vila PA PA Elmo Young RN RN jb4 VILLA ALVAREZ RN RN dd2 Corrections: (The following items were deleted from the chart) 19:27 19:27 Famotidine IVP 20 mg IVP in left antecubital jb4 jb4
[2025-03-07 22:12] VITALS: TEMP 98.4
[2025-03-07 22:14] VITALS: BP 111/81; O2SAT 97
== END 2025-03-07 21:50 | disposition home or self-care (01) ==
LOC: ER 17:23
DX: R10.12 Left upper quadrant pain (principal); R11.0 Nausea; F41.9 Anxiety disorder, unspecified; Z72.0 Tobacco use
CPT/HCPCS: 96361; 85025; 81001; 36415; 81025; 83690; 80053; 74177; 96374; 99284; Q9967; J7030; J2405

== ENCOUNTER 2025-06-21 03:34 | Emergency (ER) | payer BC ==
[2025-06-21] MEDS ORDERED: NA CHLORIDE 0.9% 1,000 ML ONE (03:42)
[2025-06-21 04:15] LABS: Absolute Lymphocytes (CBC) 3.2 K/uL (0.7-4.9); Hematocrit 41.2 % (36.0-45.0); Hemoglobin 14.0 g/dL (12.0-15.0); MCH 29.6 pg (27.0-35.0); MCHC 34.0 g/dL (32.0-36.0); MCV 87.2 fL (80-100); MPV 9.2 fL (7.6-11.3); Nucleated RBC Absolute Count 0.0 (0-0); Nucleated Red Blood Cells % 0.0 % (0-0); RBC Red Blood Cell Count 4.73 M/uL (3.86-4.86); White Blood Count 7.60 thou/uL (4.3-10.9)
[2025-06-21 04:18] LABS: PT Prothrombin Time 12.9 SECONDS (10-13.0); Protime INR 1.15
[2025-06-21] MEDS ORDERED: MAGNES/ALUMIN/SIMET 30ML UCUP ONE (04:21)
[2025-06-21] MEDS ORDERED: LORazepam 2 MG/ML VIAL ONE (04:21)
[2025-06-21] MEDS ORDERED: LIDOCAINE VISCOUS 2% 10ML ORAL SOLN ONE (04:22)
[2025-06-21 04:33] LABS: ALT/SGPT 21 U/L (13-56); Albumin 3.6 g/dL (3.4-5.0); Albumin/Globulin Ratio 1.0 (1.1-1.8); Alkaline Phosphatase 68 U/L (45-117); Anion Gap 5.8 mEq/L (5.0-15.0); BUN Blood Urea Nitrogen 11 mg/dL (7-18); Globulin 3.7 g/dL (2.3-3.5); Glucose Level 95 mg/dL (74-106); HDL Cholesterol 42 mg/dL (40-60); LDL Cholesterol, Calculated 154 mg/dL (<130); LDL Cholesterol,Calc NonReport 154; Magnesium 2.2 mg/dL (1.6-2.4); NT PRO-BNP 39 pg/mL (<125); Potassium 3.8 mEq/L (3.5-5.1); Troponin High Sensitivity 3.1 pg/mL (<58.9)
[2025-06-21 04:34] LABS: AST/SGOT < 10 U/L (15-37); Bilirubin Indirect, Calculated 0.2 mg/dL (0.2-0.8)
--- NOTE | 2025-06-21 04:51 | ER ---
Nurse's Notes [facility] Name: Bouchra Dawkins Age: 35 yrs Sex: Female : 1990 Arrival Date: 06/21/2025 Time: 03:34 Bed 17 Private MD: Diagnosis: Anxiety disorder, unspecified;Acute gastritis;Palpitations Presentation: 06/21 03:47 Chief complaint: Patient states: increased anxiety X3 weeks. Coronavirus screen: Client lg3 denies travel out of the [place] in the last 14 days. At this time, the client does not indicate any symptoms associated with coronavirus-19. Ebola Screen: No symptoms or risks identified at this time. Initial Sepsis Screen: Does the patient meet any 2 criteria? No. Patient's initial sepsis screen is negative. Does the patient have a suspected source of infection? No. Patient's initial sepsis screen is negative. Risk Assessment: Do you want to hurt yourself or someone else? Patient reports no desire to harm self or others. Onset of symptoms is unknown. 03:47 Method Of Arrival: Ambulatory lg3 03:47 Acuity: SANJANA 3 lg3 Triage Assessment: 03:48 General: Appears in no apparent distress. comfortable, Behavior is cooperative, lg3 anxious. Pain: Denies pain. EENT: No deficits noted. No signs and/or symptoms were reported regarding the EENT system. Neuro: No deficits noted. Ott Agitation-Sedation Scale (RASS): 0 - Alert and Calm Level of Consciousness is awake, alert, obeys commands, Oriented to person, place, time, situation. Cardiovascular: No deficits noted. Denies chest pain, shortness of breath, Capillary refill < 3 seconds Clubbing of nail beds is absent JVD is absent Patient's skin is warm and dry. Respiratory: No deficits noted. Airway is patent Respiratory effort is even, unlabored, Respiratory pattern is regular, symmetrical. GI: No deficits noted. No signs and/or symptoms were reported involving the gastrointestinal system. : No signs and/or symptoms were reported regarding the genitourinary system. Derm: No deficits noted. No signs and/or symptoms reported regarding the dermatologic system. Skin is intact, is healthy with good turgor, Skin is dry, Skin is normal, Skin temperature is warm. Musculoskeletal: No deficits noted. Circulation, motion, and sensation intact. Range of motion: intact in all extremities. 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 - Infectious Disease History:: Denies. - Social history:: Smoking status: Patient reports the use of cigarette tobacco products, smokes one-half pack cigarettes per day, Patient/guardian denies using alcohol, street drugs. - Family history:: not pertinent. Screenin:11 [facility] ED Fall Risk Assessment (Adult) History of falling in the last 3 months, tb4 including since admission No falls in past 3 months (0 pts) Confusion or Disorientation No (0 pts) Intoxicated or Sedated No (0 pts) Impaired Gait No (0 pts) Mobility Assist Device Used No (0 pt) Altered Elimination No (0 pt) Score/Fall Risk Level 0 - 2 = Low Risk Oriented to surroundings, Maintained a safe environment. Abuse screen: Denies threats or abuse. Denies injuries from another. Nutritional screening: No deficits noted. Tuberculosis screening: No symptoms or risk factors identified. Assessment: 04:11 Reassessment: See triage note. General: Appears uncomfortable, Behavior is anxious. tb4 Pain: Denies pain. Neuro: Level of Consciousness is awake, alert, obeys commands, Oriented to person, place, time, situation, [employer] Hand are equal bilaterally Moves all extremities. Full function Gait is steady, Speech is normal, Facial symmetry appears normal. Respiratory: Airway is patent Respiratory effort is even, unlabored, Respiratory pattern is regular, symmetrical. GI: No signs and/or symptoms were reported involving the gastrointestinal system. : No signs and/or symptoms were reported regarding the genitourinary system. EENT: No signs and/or symptoms were reported regarding the EENT system. Derm: No signs and/or symptoms reported regarding the dermatologic system. Skin is intact, is healthy with good turgor, Skin is dry, Skin is normal. Musculoskeletal: No signs and/or symptoms reported regarding the musculoskeletal system. Circulation, motion, and sensation intact. Range of motion: intact in all extremities. Vital Signs: 03:47 BP 116 / 83; Pulse 62; Resp 17 S; Temp 97.8(O); Pulse Ox 100% on R/A; Weight 75.3 kg lg3 (R); Height 5 ft. 4 in. (R); 04:11 BP 108 / 78; Pulse 62; Resp 12; Pulse Ox 97% on R/A; Weight 72.57 kg; Height 5 ft. 4 tb4 in. ; Pain 0/10; 05:10 BP 109 / 81; Pulse 56; Resp 16; Pulse Ox 100% on R/A; Pain 0/10; tb4 04:11 Body Mass Index 27.46 (72.57 kg, 162.56 cm) tb4 04:11 Pain Scale: Adult tb4 05:10 Pain Scale: Adult tb4 ED Course: 03:38 Patient arrived in ED. jj6 03:46 Elkin Nath MD is Attending Physician. stormy 03:48 Triage completed. lg3 03:48 Arm band placed on right wrist. lg3 04:03 Inserted saline lock: 20 gauge in right antecubital area, using aseptic technique. tb4 Blood collected. Flushed with 10 mL NS. 04:11 Patient has correct armband on for positive identification. Bed in low position. Call tb4 light in reach. Client placed on continuous cardiac and pulse oximetry monitoring. NIBP monitoring applied. Door closed. 04:11 Initial lab(s) drawn, by ED staff, sent to lab. EKG done, by ED staff, X-ray(s) taken. tb4 04:20 XRAY Chest (1 view) In Process Unspecified. EDMS 04:51 James Tony MD is Referral Physician. stormy 05:33 No provider procedures requiring assistance completed. tb4 05:41 Provided Education on: Take medication as prescribed. tb4 05:41 IV discontinued, intact, bleeding controlled, No redness/swelling at site. Pressure tb4 dressing applied. Administered Medications: 04:04 Drug: NS 0.9% IV 1000 ml IV at 1000 ml once; to be given as a bolus over 60 minutes tb4 Route: IV; Rate: 1000 ml; Site: right antecubital; 04:55 Follow up: Response: No adverse reaction; IV Status: Completed infusion tb4 04:44 Drug: GI Cocktail without - (Maalox PO 30 ml, Lidocaine Mucous Membrane 2 % 15 tb4 ml) PO once Route: PO; 05:00 Follow up: Response: No adverse reaction; Pain is decreased tb4 04:55 Not Given (Patient Refused): lorazepam1 mg PO once tb4 Medication: 04:11 VIS not applicable for this client. tb4 Outcome: 04:51 Discharge ordered by MD. burrows 05:42 Discharged to home ambulatory, with family, tb4 05:42 Condition: stable 05:42 Discharge instructions given to patient, Instructed on discharge instructions, follow up and referral plans. Demonstrated understanding of instructions, follow-up care, medications, Prescriptions given X 4, 05:43 Patient left the ED. tb4 Signatures: Dispatcher [employer] EDElkin Britton MD MD cha Able, Lacie RN RN lg3 Bethany Silva6 Gudelia Saucedo, RN RN tb4
--- NOTE | 2025-06-21 04:51 | EDPHYS ---
Physician Documentation [facility] Name: Bouchra Dawkins Age: 35 yrs Sex: Female : 1990 Arrival Date: 06/21/2025 Time: 03:34 Bed 17 Private MD: ED Physician Elkin Nath HPI: 06/21 04:25 This 35 yrs old Female presents to ER via Ambulatory with complaints of stormy Anxiety. 04:25 The patient presents to the emergency department with anxiety, depression, over unknown stormy circumstances. Onset: The symptoms/episode began/occurred just prior to arrival, this morning. Past psychiatric history: Prior diagnosis: depression, anxiety. The patient presents with a history of irregular heart beat, heart racing. Context: The symptoms occur at rest, during sleep. Duration: The patient or guardian reports multiple episodes, that wax and wane. Modifying factors: The symptoms are aggravated by anxiety, The symptoms are alleviated by lying down, remaining still, rest. The patient presents with abdominal pain gastritis. 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 - Infectious Disease History:: Denies. - Social history:: Smoking status: Patient reports the use of cigarette tobacco products, smokes one-half pack cigarettes per day, Patient/guardian denies using alcohol, street drugs. - Family history:: not pertinent. ROS: 04:25 Constitutional: Negative for fever, chills, and weight loss, Eyes: Negative for injury, stormy pain, redness, and discharge, ENT: Negative for injury, pain, and discharge, Neck: Negative for injury, pain, and swelling, Cardiovascular: Negative for chest pain, palpitations, and edema, Respiratory: Negative for shortness of breath, cough, wheezing, and pleuritic chest pain, Abdomen/GI: Negative for abdominal pain, nausea, vomiting, diarrhea, and constipation, Back: Negative for injury and pain, : Negative for injury, bleeding, discharge, and swelling, MS/Extremity: Negative for injury and deformity, Skin: Negative for injury, rash, and discoloration, Neuro: Negative for headache, weakness, numbness, tingling, and seizure, Psych: Negative for depression, anxiety, suicide ideation, homicidal ideation, and hallucinations, Allergy/Immunology: Negative for hives, rash, and allergies, Endocrine: Negative for neck swelling, polydipsia, polyuria, polyphagia, and marked weight changes, Hematologic/Lymphatic: Negative for swollen nodes, abnormal bleeding, and unusual bruising, 04:25 MS/extremity: Negative for acute changes, Exam: 04:25 Constitutional: This is a well developed, well nourished patient who is awake, alert, stormy and in no acute distress. Head/Face: Normocephalic, atraumatic. Eyes: Pupils equal round and reactive to light, extra-ocular motions intact. Lids and lashes normal. Conjunctiva and sclera are non-icteric and not injected. Cornea within normal limits. Periorbital areas with no swelling, redness, or edema. ENT: Nares patent. No nasal discharge, no septal abnormalities noted. Tympanic membranes are normal and external auditory canals are clear. Oropharynx with no redness, swelling, or masses, exudates, or evidence of obstruction, uvula midline. Mucous membranes moist. Neck: Trachea midline, no thyromegaly or masses palpated, and no cervical lymphadenopathy. Supple, full range of motion without nuchal rigidity, or vertebral point tenderness. No Meningismus. Chest/axilla: Normal chest wall appearance and motion. Nontender with no deformity. No lesions are appreciated. Cardiovascular: Regular rate and rhythm with a normal S1 and S2. No gallops, murmurs, or rubs. Normal PMI, no JVD. No pulse deficits. Respiratory: Lungs have equal breath sounds bilaterally, clear to auscultation and percussion. No rales, rhonchi or wheezes noted. No increased work of breathing, no retractions or nasal flaring. Abdomen/GI: Soft, non-tender, with normal bowel sounds. No distension or tympany. No guarding or rebound. No evidence of tenderness throughout. Back: No spinal tenderness. No costovertebral tenderness. Full range of motion. Skin: Warm, dry with normal turgor. Normal color with no rashes, no lesions, and no evidence of cellulitis. MS/ Extremity: Pulses equal, no cyanosis. Neurovascular intact. Full, normal range of motion., bilateral aka Neuro: Awake and alert, GCS 15, oriented to person, place, time, and situation. Cranial nerves II-XII grossly intact. Motor strength 5/5 in all extremities. Sensory grossly intact. Cerebellar exam normal. Normal gait. Psych: Awake, alert, with orientation to person, place and time. Behavior, mood, and affect are within normal limits. 04:25 ECG was reviewed by the Attending Physician. Vital Signs: 03:47 BP 116 / 83; Pulse 62; Resp 17 S; Temp 97.8(O); Pulse Ox 100% on R/A; Weight 75.3 kg lg3 (R); Height 5 ft. 4 in. (R); 04:11 BP 108 / 78; Pulse 62; Resp 12; Pulse Ox 97% on R/A; Weight 72.57 kg; Height 5 ft. 4 tb4 in. ; Pain 0/10; 05:10 BP 109 / 81; Pulse 56; Resp 16; Pulse Ox 100% on R/A; Pain 0/10; tb4 04:11 Body Mass Index 27.46 (72.57 kg, 162.56 cm) tb4 04:11 Pain Scale: Adult tb4 05:10 Pain Scale: Adult tb4 MDM: 03:46 Medical Screening Exam initiated stormy 04:29 Differential diagnosis: drug withdrawal. acute psychotic break, depression, psychosis stormy secondary to non-compliance, arrythmia, dehydration, acute coronary syndrome, appendicitis, bowel obstruction, gastritis, GI Bleed, Irritable bowel syndrome, pancreatitis, Peptic Ulcer Disease, Perf. Duodenal Ulcer, Ureterolithiasis, urinary tract infection. Data reviewed: vital signs, nurses notes, lab test result(s), EKG, radiologic studies, plain films. Consideration of Admission/Observation Escalation of care including admission/observation considered. I considered the following discharge prescriptions or medication management in the emergency department Medications were administered in the Emergency Department. See MAR. Independent interpretation of the following test(s) in the Emergency Department EKG: See my EKG interpretation above. Test considered but Not performed: CT: no ct ab/pel. Care significantly affected by the following chronic conditions: Obesity, anxiety, bells, gerd. 06/21 03:48 Order name: Basic Metabolic Panel; Complete Time: 04:50 [facility] 06/21 03:48 Order name: CBC with Diff; Complete Time: 04:50 [facility] 06/21 03:48 Order name: LFT's; Complete Time: 04:50 [facility] 06/21 03:48 Order name: Magnesium; Complete Time: 04:50 [facility] 06/21 03:48 Order name: NT PRO-BNP; Complete Time: 04:50 [facility] 06/21 03:48 Order name: PT-INR; Complete Time: 04:50 [facility] 06/21 03:48 Order name: Troponin HS; Complete Time: 04:50 [facility] 06/21 03:48 Order name: Lipid Profile; Complete Time: 04:50 [facility] 06/21 03:48 Order name: UA Rfx Peewee Cult if indicated 06/21 03:48 Order name: UDS [facility] 06/21 03:48 Order name: XRAY Chest (1 view) [facility] 06/21 03:48 Order name: Cardiac monitoring; Complete Time: 04:19 [facility] 06/21 03:48 Order name: EKG - Nurse/Tech; Complete Time: 04:03 [facility] 06/21 03:48 Order name: IV Saline Lock; Complete Time: 04:03 [facility] 06/21 03:48 Order name: Labs collected and sent; Complete Time: 04:03 [facility] 06/21 03:48 Order name: O2 Per Protocol; Complete Time: 04:03 [facility] 06/21 03:48 Order name: O2 Sat Monitoring; Complete Time: 04:03 [facility] EC:25 Rate is 60 beats/min. Rhythm is regular. QRS [place] is Normal. CT interval is normal. QRS stormy interval is normal. QT interval is normal. No Q waves. T waves are Normal. No ST changes noted. Clinical impression: Normal ECG and No evidence of ischemia. Interpreted by me. Reviewed by me. Administered Medications: 04:04 Drug: NS 0.9% IV 1000 ml IV at 1000 ml once; to be given as a bolus over 60 minutes tb4 Route: IV; Rate: 1000 ml; Site: right antecubital; 04:55 Follow up: Response: No adverse reaction; IV Status: Completed infusion tb4 04:44 Drug: GI Cocktail without - (Maalox PO 30 ml, Lidocaine Mucous Membrane 2 % 15 tb4 ml) PO once Route: PO; 05:00 Follow up: Response: No adverse reaction; Pain is decreased tb4 04:55 Not Given (Patient Refused): lorazepam1 mg PO once tb4 Disposition Summary: 06/21/25 04:51 Discharge Ordered Notes: Location: Home stormy Problem: new stormy Symptoms: have improved stormy Condition: Stable stormy Diagnosis - Anxiety disorder, unspecified stormy - Acute gastritis stormy - Palpitations stormy Followup: stormy - With: Private Physician - When: 2 - 3 days - Reason: Recheck today's complaints, Continuance of care, Re-evaluation by your physician Followup: stormy - With: James Tony MD - When: 2 - 3 days - Reason: Recheck today's complaints, Re-evaluation by your physician Discharge Instructions: - Discharge Summary Sheet stormy - Palpitations stormy - Palpitations, [id number] stormy - Generalized Anxiety Disorder, Adult [facility] - Supporting Someone With Anxiety [facility] - Managing Anxiety, Adult [facility] Forms: - Medication Reconciliation Form [facility] - Antibiotic Education [facility] - Prescription Opioid Use [facility] - Patient Portal Instructions [facility] - Leadership Thank You Letter [facility] Prescriptions: - Carafate 1 gram Oral tablet - take 1 tablet ORAL route 4 times per day take on an empty stomach, beginning on [facility] waking and last dose at bedtime; 60 tablet; Refills: 0, Product Selection Permitted - Hydroxyzine HCl 25 mg Oral Tablet - take 1 tablet ORAL route every 6 hours As needed; 30 tablet; Refills: 0, [facility] Product Selection Permitted - Protonix 40 mg Oral Tablet - take 1 tablet ORAL route once daily; 30 tablet; Refills: 0, Product Selection [facility] Permitted - Xanax 0.5 mg Oral Tablet - take 1 tablet ORAL route every 8 hours As needed; 20 tablet; Refills: 0, [facility] Product Selection Permitted Signatures: Dispatcher [employer] EDElkin Britton MD MD cha Able, Lacie RN RN lg3 Gudelia Saucedo RN RN tb4 Corrections: (The following items were deleted from the chart) 03:49 03:49 BASIC METABOLIC PANEL+C.LAB.BRZ ordered. EDMS EDMS 03:49 03:49 CBC+H.LAB.BRZ ordered. EDMS EDMS 03:49 03:49 HEPATIC FUNCTION+C.LAB.BRZ ordered. EDMS EDMS 03:49 03:49 MAGNESIUM+C.LAB.BRZ ordered. EDMS EDMS 03:49 03:49 PROBNP+C.LAB.BRZ ordered. EDMS EDMS 03:49 03:49 PROTIME (+INR)+COAG.LAB.BRZ ordered. EDMS EDMS 03:49 03:49 Troponin High Sensitivity+C.LAB.BRZ ordered. EDMS EDMS 03:49 03:49 LIPID PROFILE+C.LAB.BRZ ordered. EDMS EDMS 03:49 03:49 UA Rfx Peewee Cult if indicated+U.LAB.BRZ ordered. EDMS EDMS 03:49 03:49 URINE DRUG SCREEN+UC.LAB.BRZ ordered. EDMS EDMS 03:49 03:49 Chest Single View+RAD.RAD.BRZ ordered. EDMS EDMS
[2025-06-21 05:43] LABS: METHAMPHETAM NEGATIVE (NEGATIVE); THC Cannibis NEGATIVE (NEGATIVE)
--- NOTE | 2025-06-21 05:50 | RAD REPORT ---
INDICATION: COUGH COMPARISON: No existing relevant imaging studies are available FINDINGS: Single frontal view of the chest was obtained. SUPPORT DEVICES: None HEART/MEDIASTINUM: Cardiomediastinal contours are normal. LUNGS/PLEURA: Lungs are clear. No pleural effusion or pneumothorax. OTHER: No other significant findings. IMPRESSION: No acute findings. Electronically signed by: Shay Cooley DO 06/21/2025 04:35 AM CDT RP NR Due to temporary technical issues with the PACS/[employer] reporting system, reports are being martha d by the in-house radiologist without review as a courtesy to ensure prompt reporting the interpreting radiologist is fully responsible for the content of the report. Transcribed Date/Time: 06/21/2025 5:49 AM
[2025-06-21 05:57] LABS: Sqamous Epithelial <5 /HPF (None Seen); Urine Culture Reflex Order NOT NEEDED; Urine Microscopic Reflex YN ORDER UMIC
[2025-06-21 06:25] VITALS: TEMP 97.8
[2025-06-21 06:30] VITALS: BP 109/81; O2SAT 100
== END 2025-06-21 05:43 | disposition home or self-care (01) ==
LOC: ER 03:34
DX: F41.9 Anxiety disorder, unspecified (principal); K29.00 Acute gastritis without bleeding; F17.210 Nicotine dependence, cigarettes, uncomplicated
CPT/HCPCS: 93005; 85025; 81001; 80048; 36415; 83735; 85610; 80061; 80076; 84484; 83880; 80307; 71045; J7030

== ENCOUNTER 2025-07-14 09:28 | Emergency (ER) | payer BC ==
[2025-07-14] MEDS ORDERED: DIAZEPAM 5 MG TABLET ONE (09:55)
--- NOTE | 2025-07-14 10:40 | ER ---
Nurse's Notes [facility] Name: Bouchra Dawkins Age: 35 yrs Sex: Female : 1990 Arrival Date: 07/14/2025 Time: 09:28 Bed 5 Private MD: Diagnosis: Anxiety disorder, unspecified Presentation: 07/14 09:41 Chief complaint: Patient states: has been dealing with a alison of anxiety recently, has iw an appt with her doctor on Saturday but feeling more anxious today. Coronavirus screen: At this time, the client does not indicate any symptoms associated with coronavirus-19. Ebola Screen: No symptoms or risks identified at this time. Initial Sepsis Screen: Does the patient meet any 2 criteria? No. Patient's initial sepsis screen is negative. Does the patient have a suspected source of infection? No. Patient's initial sepsis screen is negative. Risk Assessment: Do you want to hurt yourself or someone else? Patient reports no desire to harm self or others. Onset of symptoms was July 02, 2025. 09:41 Method Of Arrival: Ambulatory iw 09:41 Acuity: SANJANA 3 iw Triage Assessment: :45 General: Appears in no apparent distress. Behavior is cooperative, appropriate for age, bp anxious. Pain: Denies pain. EENT: No deficits noted. Neuro: Level of Consciousness is awake, alert, obeys commands, Oriented to Appropriate for age. Cardiovascular: No deficits noted. Respiratory: No deficits noted. GI: No signs and/or symptoms were reported involving the gastrointestinal system. : No signs and/or symptoms were reported regarding the genitourinary system. Derm: No deficits noted. Musculoskeletal: No deficits noted. Historical: - Allergies: 09:42 Erythromycin; iw - PMHx: 09:42 Mckay's Palsy; Anxiety; GERD (Unknown); iw - PSHx: 09:42 Tonsillectomy; iw - Immunization history:: Adult Immunizations unknown. - Infectious Disease History:: Denies. - Social history:: Smoking status: Patient denies any tobacco usage or history of. Screenin:45 [facility] ED Fall Risk Assessment (Adult) History of falling in the last 3 months, db including since admission No falls in past 3 months (0 pts) Confusion or Disorientation No (0 pts) Intoxicated or Sedated No (0 pts) Impaired Gait No (0 pts) Mobility Assist Device Used No (0 pt) Altered Elimination No (0 pt) Score/Fall Risk Level 0 - 2 = Low Risk Oriented to surroundings, Maintained a safe environment. Abuse screen: Denies threats or abuse. Denies injuries from another. Nutritional screening: No deficits noted. Tuberculosis screening: No symptoms or risk factors identified. Assessment: 09:45 Reassessment: Patient appears in no apparent distress at this time. Patient and/or db family updated on plan of care and expected duration. Pain level reassessed. Patient is alert, oriented x 3, equal unlabored respirations, skin warm/dry/pink. General: Appears in no apparent distress. comfortable, Behavior is calm, cooperative. Pain: Denies pain. Neuro: Level of Consciousness is awake, alert, obeys commands, Oriented to person, place, time, situation. Respiratory: Airway is patent Respiratory effort is even, unlabored, Respiratory pattern is regular, symmetrical. Vital Signs: 09:41 BP 132 / 81; Pulse 75; Resp 16; Pulse Ox 99% on R/A; iw 10:15 BP 123 / 79; Pulse 63; Resp 16; Pulse Ox 100% on R/A; db ED Course: 09:29 Patient arrived in ED. im 09:30 [facility]C [facility] kb 09:30 Araseli Nix MD is Attending Physician. kb 09:36 Jeff Pérez, BETZY is Primary Nurse. bp 09:42 Triage completed. iw 09:43 Arm band placed on. iw 09:45 Patient has correct armband on for positive identification. Bed in low position. Call db light in reach. Side rails up X 1. Pulse ox on. NIBP on. Warm blanket given. Pillow given. 10:49 No provider procedures requiring assistance completed. Patient did not have IV access bp during this emergency room visit. Administered Medications: 10:00 Drug: Diazepam PO 5 mg PO once Route: PO; db 10:49 Follow up: Response: No adverse reaction bp Medication: 09:45 VIS not applicable for this client. db Outcome: 10:40 Discharge ordered by . kb 10:49 Discharged to home ambulatory, with family, bp 10:49 Condition: stable 10:49 Discharge instructions given to patient, Instructed on discharge instructions, follow up and referral plans. Demonstrated understanding of instructions, follow-up care, 10:50 Patient left the ED. bp Signatures: Leanna Grady, PISTON MAKER-C PISTON MAKER-Peggy Melton, RN Jeff Guardado RN RN Bouchra Faulkner, BETZY RN Sara Wilson
--- NOTE | 2025-07-14 10:40 | EDPHYS ---
Physician Documentation [facility] Name: Bouchra Dawkins Age: 35 yrs Sex: Female : 1990 Arrival Date: 07/14/2025 Time: 09:28 Bed 5 Private MD: ED Physician Araseli Nix HPI: 07/14 10:31 This 35 yrs old Female presents to ER via Ambulatory with complaints of Anxiety. kb 10:31 Pt is a 35 year old female who presents for anxiety. States her anxiety has been out of kb control for the last 2 weeks. States she had a workup done and wore a holter monitor to ensure it wasn't a cardiac problem. States she was started on cymbalta 2 days ago and has been taking klonazapam 0.25mg but she is still having anxiety. States she has a follow up appt with her PCP on Saturday. States she has a lot of stress in her life right now. Denies suicidal or homicidal ideations. . Historical: - Allergies: 09:42 Erythromycin; iw - PMHx: 09:42 Mckay's Palsy; Anxiety; GERD (Unknown); iw - PSHx: 09:42 Tonsillectomy; iw - Immunization history:: Adult Immunizations unknown. - Infectious Disease History:: Denies. - Social history:: Smoking status: Patient denies any tobacco usage or history of. ROS: 10:34 Constitutional: As per HPI kb Exam: 10:34 Constitutional: This is a well developed, well nourished patient who is awake, alert, kb and in no acute distress. Head/Face: Normocephalic, atraumatic. ENT: Moist Mucous membranes Cardiovascular: Regular rate Respiratory: Respirations even and unlabored. No increased work of breathing. Talking in full sentences Skin: Warm, dry with normal turgor. Normal color. MS/ Extremity: Pulses equal, no cyanosis. Neurovascular intact. Full, normal range of motion. Neuro: Awake and alert, GCS 15, oriented to person, place, time, and situation. Vital Signs: 09:41 BP 132 / 81; Pulse 75; Resp 16; Pulse Ox 99% on R/A; iw 10:15 BP 123 / 79; Pulse 63; Resp 16; Pulse Ox 100% on R/A; db MDM: 09:30 Medical Screening Exam initiated kb 10:37 Data reviewed: vital signs, nurses notes. kb 10:37 Differential diagnosis: acute stress reaction, anxiety disorder, panic attack. kb Consideration of Admission/Observation Escalation of care including admission/observation considered. transfer considered for inpatient psych treatment, but pt denies suicidal ideations and father states she doesn't have problems with that. States she has only been taking half doses of the medication prescribed so he thinks she should take the full doses. Historians other than the Patient: Parent: father. Counseling: I had a detailed discussion with the patient and/or guardian regarding the historical points, exam findings, and any diagnostic results supporting the discharge/admit diagnosis, the need for outpatient follow up, a psychiatrist, to return to the emergency department if symptoms worsen or persist or if there are any questions or concerns that arise at home. Administered Medications: 10:00 Drug: Diazepam PO 5 mg PO once Route: PO; db 10:49 Follow up: Response: No adverse reaction bp Disposition Summary: 07/14/25 10:40 Discharge Ordered Notes: Location: Home kb Condition: Stable kb Diagnosis - Anxiety disorder, unspecified kb Followup: kb - With: Emergency Department - When: As needed - Reason: Worsening of condition Followup: kb - With: Private Physician - When: 2 - 3 days - Reason: Recheck today's complaints, Continuance of care, Re-evaluation by your physician Discharge Instructions: - Discharge Summary Sheet kb - Panic Attack, [id number]-[id number] kb - Managing Anxiety, Adult kb Forms: - Medication Reconciliation Form kb - Antibiotic Education kb - Prescription Opioid Use kb - Patient Portal Instructions kb - Leadership Thank You Letter kb - Work release form bc6 Signatures: Leanna Grady FNP-C FNP-Peggy Melton, RN RN iw Bouchra Lunsford, RN RN Jeff Rader RN bp
[2025-07-14 11:13] VITALS: BP 123/79; O2SAT 100
== END 2025-07-14 10:50 | disposition home or self-care (01) ==
LOC: ER 09:28
DX: F41.9 Anxiety disorder, unspecified (principal)
CPT/HCPCS: 99283